=== PATIENT | male | born 1945 | race Caucasian/White ===

== ENCOUNTER 2017-06-28 19:14 | Emergency (ER) | payer MEDICARE, MEDICAID ==
[2017-06-28] MEDS ORDERED: Diphtheria,Pertussis(Acell),Tetanus Vaccine 0.5 ML SDV IM ONE (19:29)
[2017-06-28] MEDS ORDERED: Sodium Chloride 0.9% 10 ML Syringe FLUSH PRN (19:29)
[2017-06-28 20:03] VITALS: BP 134/91
--- NOTE | 2017-06-28 20:17 | EDM.PDOC ---
ED HPI GENERAL MEDICAL PROBLEM - General Chief Complaint: Head Injury Stated Complaint: HEAD INJURY Time Seen by Provider: 06/28/17 19:17 Source of Information: Reports: Patient, Skilled Nursing Records History Limitations: Reports: Altered Mental Status (dementia) - History of Present Illness INITIAL COMMENTS - FREE TEXT/NARRATIVE: 71 year old male presents from [facility] for evaluation and treatment of a laceration to the right lateral superior orbit. Patient is pleasantly demented and is unable to provide a reliable history. Per [facility] the patient was found in the bathroom after falling. No one witnessed the fall. Patient is on 81mg aspirin daily. Complaining of pain to the right side of his face and head. No chest pain, shortness of breath or abdominal pain. Unclear how he fell. Headache Pain Score (Numeric/FACES): 7 - Related Data Allergies Allergy/AdvReac Type Severity Reaction Status Date / Time No Known Allergies Allergy Verified 06/28/17 19:27 Home Meds: Home Meds Acetaminophen [Tylenol] 650 mg PO 0800,1700 06/28/17 [History] Aspirin 81 mg PO 0800 06/28/17 [History] B12/Levomefolate Calcium/B-6 [Foltx Tablet] 1 each PO 0800 06/28/17 [History] Bisacodyl [Laxative] 10 mg PO DAILY PRN 06/28/17 [History] Calcium Carbonate/Vitamin D3 [Calcium 500 + Vit D Caplet] 1 each PO 0800 [History] Cholecalciferol (Vitamin D3) [Vitamin D3] 4,000 unit PO 0800 06/28/17 [History] Divalproex Sodium 250 mg PO BID 06/28/17 [History] Docusate Sodium [Colace] 100 mg PO 0800,202906/28/17 [History] Fenofibrate 160 mg PO 0800 06/28/17 [History] Furosemide [Lasix] 40 mg PO 0800 06/28/17 [History] Isosorbide Mononitrate 15 mg PO 0800 06/28/17 [History] Lisinopril [Prinivil] 5 mg PO 0800 06/28/17 [History] Memantine [Namenda] 10 mg PO 0730,1730 06/28/17 [History] Metoprolol Succinate [Toprol XL] 50 mg PO 0800 06/28/17 [History] Multivitamin W/Iron, Minerals [George-Life] 1 each PO 0800 06/28/17 [History] PARoxetine [Paxil] 20 mg PO 0800 06/28/17 [History] Polyethylene Glycol 3350 [MiraLAX] 17 gm PO 0800,2030 06/28/17 [History] Potassium Chloride 20 meq PO 0800 06/28/17 [History] QUEtiapine Fumarate [Seroquel] 50 mg PO 1130,1930 06/28/17 [History] Rivastigmine Tartrate [Rivastigmine] 6 mg PO 0730,1730 06/28/17 [History] Tamsulosin [Flomax] 0.8 mg PO BEDTIME 06/28/17 [History] atorvaSTATin [Lipitor] 20 mg PO 0800 06/28/17 [History] levOCARNitine [l-Carnitine] 1,000 mg PO 0800,1200,1700 06/28/17 [History] metFORMIN HCl [Metformin HCl] 500 mg PO 0730,1730 06/28/17 [History] Past Medical History Cardiovascular History: Reports: High Cholesterol, Hypertension Respiratory History: Reports: Asthma, COPD Psychiatric History: Reports: Dementia, Psychosis Endocrine/Metabolic History: Reports: Diabetes, Type II Social & Family History - Tobacco Use Smoking Status *Q: Unknown Ever Smoked Years of Tobacco use: 45 Used Tobacco, but Quit: Yes Month Tobacco Last Used: 5 - Recreational Drug Use Recreational Drug Use: No ED ROS GENERAL - Review of Systems Review Of Systems: See Below Respiratory: Denies: Shortness of Breath Cardiovascular: Denies: Chest Pain GI/Abdominal: Denies: Abdominal Pain Skin: Reports: Wound (right lateral brow) ED EXAM, HEAD INJURY - Physical Exam Exam: See Below Exam Limited By: No Limitations General Appearance: Alert, WD/WN, No Apparent Distress Head: Normocephalic, Scalp Lacerations, Scalp Swelling, Scalp Abrasions, Scalp Ecchymosis, Scalp Hematoma, Scalp Tenderness, Facial Lacerations (right lateral brow 2.5cm irregular subcutaneous laceration) Nexus Criteria: No: Posterior, Midline Cervical Tenderness, Evidence of Intoxication, Altered Level of Consciousness, Focal Neurological Deficit, Painful Distraction Injuries Eyes: Bilateral Eye: Normal Inspection Ears: Normal External Exam Nose: Normal Inspection Throat/Mouth: Normal Inspection, Normal Lips, Normal Oropharynx, Normal Voice, No Airway Compromise Neck: Non-Tender, Full Range of Motion, Normal Alignment, Normal Inspection Respiratory: No Respiratory Distress, Lungs Clear, Normal Breath Sounds Cardiovascular: Normal Peripheral Pulses, Regular Rate, Rhythm, No Murmur GI/Abdominal Exam: Normal Bowel Sounds, Soft, Non-Tender Back Exam: No: Vertebral Tenderness Extremities: Normal Inspection, Normal Range of Motion Neurologic: Alert Skin: Normal Color, Warm/Dry, Other (2.5cm laceration to the right lateral brow) - [place] Coma Score Best Eye Response ([place]): (4) Open Spontaneously Best Verbal Response (Mark): (5) Oriented Best Motor Response ([place]): (6) Obeys Commands ED LACERATION/WOUND & ANAHY PROC - Laceration/Wound Repair Right Lac/wound length in cm: 2.5 Appearance: Subcutaneous, Irregular, Clean Distal NVT: Neuro & Vascular Intact, No Tendon Injury Anesthetic Type: Local Local Anesthesia - Lidocaine (Xylocaine): 1% Plain Local Anesthetic Volume: 2cc Skin Prep: Chlorhexidine (Hibiciens), Saline, Sterile Drape Exploration/Debridement/Repair: Wound Explored Suture Size: other (5-0) # of Sutures: 9 Suture Type: Nylon, Interrupted, Simple Suture Size: other (5-0) # of Sutures: 3 Repaired with: Vicryl Sterile Dressing Applied: Nurse Tetanus Status Addressed: Yes Complications: No EKG INTERPRETATION EKG Date: 06/28/17 Time: 19:40 Rhythm: A-Fib Rate (Beats/Min): 94 [place]: Normal P-Wave: Present QRS: RBBB ST-T: Normal QT: Normal EKG Interpretation Comments: a.fib with a rate of 84 to 140 bpm. RBBB pattern. LAD 1-23 degrees. Occassional PVC. T wave inversion VV1-V3. Near Q waves III and AVF - consider possible old inferior wall OK. Reviewed by muyself ad Dr. Kebede. Course - Vital Signs Last Recorded V/S: Last Vital Signs Temp 36.3 C 06/28/17 19:23 Pulse 79 06/28/17 20:03 Resp 18 06/28/17 20:03 BP 134/91 H 06/28/17 20:03 Pulse Ox 94 L 06/28/17 20:03 - Orders/Labs/Meds Orders: Active Orders 24 hr Category Date Time Status Cardiac Monitoring [RC] . DIRECTED Care 06/28/17 19:29 Active EKG Documentation Completion [RC] ASDIRECTED Care 06/28/17 19:29 Active Peripheral IV Care [RC] . DIRECTED Care 06/28/17 19:29 Active Vaccines to be Administered [RC] PER UNIT ROUTINE Care 06/28/17 19:29 Active Peripheral IV Insertion Adult [OM.PC] Routine Oth 06/28/17 19:28 Ordered EKG 12 Lead [EK] Stat Ther 06/28/17 19:29 Ordered Labs: Laboratory Tests 06/28/17 06/28/17 06/28/17 Range/Units 19:44 19:52 19:52 WBC 7.29 (4.23-9.07) K/mm3 RBC 4.63 (4.63-6.08) M/mm3 Hgb 13.3 L (13.7-17.5) gm/L Hct 42.4 (40.1-51.0) % MCV 91.6 (79.0-92.2) fl MCH 28.7 (25.7-32.2) pg MCHC 31.4 L (32.2-35.5) g/dl RDW Std Deviation 48.1 H (35.1-43.9) fL Plt Count 226 (163-337) K/mm3 MPV 9.4 (9.4-12.3) fl Neutrophils % (Manual) 70 H (40-60) % Band Neutrophils % 0 (0-10) % Lymphocytes % (Manual) 21 (20-40) % Atypical Lymphs % 0 % Monocytes % (Manual) 8 (2-10) % Eosinophils % (Manual) 1 (0.8-7.0) % Basophils % (Manual) 0 L (0.2-1.2) Platelet Estimate Adequate Plt Morphology Comment Normal RBC Morph Comment Normal Sodium 144 (136-145) mEq/L Potassium 4.1 (3.5-5.1) mEq/L Chloride 109 H (98-107) mEq/L Carbon Dioxide 31 (21-32) mEq/L Anion Gap 8.1 (5-15) BUN 23 H (7-18) mg/dL Creatinine 1.3 (0.7-1.3) mg/dL Est Cr Clr Drug Dosing 48.73 mL/min Estimated GFR (MDRD) 54 (>60) mL/min BUN/Creatinine Ratio 17.7 (14-18) Glucose 125 H (83-115) mg/dL Calcium 9.8 (8.5-10.1) mg/dL Magnesium 2.1 (1.8-2.4) mg/dl Total Bilirubin 0.2 (0.2-1.0) mg/dL AST 15 (15-37) U/L ALT 17 (16-63) U/L Alkaline Phosphatase 49 (46-116) U/L Troponin I < 0.017 (0.00-0.056) ng/mL Total Protein 6.8 (6.4-8.2) g/dl Albumin 3.4 (3.4-5.0) g/dl Globulin 3.4 gm/dL Albumin/Globulin Ratio 1.0 (1-2) Urine Color (Yellow) Urine Appearance (Clear) Urine pH (5.0-8.0) Ur Specific [place] (1.005-1.030) Urine Protein (Negative) Urine Glucose (UA) (Negative) Urine Ketones (Negative) Urine Occult Blood (Negative) Urine Nitrite (Negative) Urine Bilirubin (Negative) Urine Urobilinogen (0.2-1.0) Ur Leukocyte Esterase (Negative) Urine RBC (0-5) /hpf Urine WBC (0-5) /hpf Ur Epithelial Cells (0-5) /hpf Amorphous Sediment (NOT SEEN) /hpf Urine Bacteria (FEW) /hpf Urine Mucus (FEW) /hpf 06/28/17 Range/Units 22:50 WBC (4.23-9.07) K/mm3 RBC (4.63-6.08) M/mm3 Hgb (13.7-17.5) gm/L Hct (40.1-51.0) % MCV (79.0-92.2) fl MCH (25.7-32.2) pg MCHC (32.2-35.5) g/dl RDW Std Deviation (35.1-43.9) fL Plt Count (163-337) K/mm3 MPV (9.4-12.3) fl Neutrophils % (Manual) (40-60) % Band Neutrophils % (0-10) % Lymphocytes % (Manual) (20-40) % Atypical Lymphs % % Monocytes % (Manual) (2-10) % Eosinophils % (Manual) (0.8-7.0) % Basophils % (Manual) (0.2-1.2) Platelet Estimate Plt Morphology Comment RBC Morph Comment Sodium (136-145) mEq/L Potassium (3.5-5.1) mEq/L Chloride (98-107) mEq/L Carbon Dioxide (21-32) mEq/L Anion Gap (5-15) BUN (7-18) mg/dL Creatinine (0.7-1.3) mg/dL Est Cr Clr Drug Dosing mL/min Estimated GFR (MDRD) (>60) mL/min BUN/Creatinine Ratio (14-18) Glucose (83-115) mg/dL Calcium (8.5-10.1) mg/dL Magnesium (1.8-2.4) mg/dl Total Bilirubin (0.2-1.0) mg/dL AST (15-37) U/L ALT (16-63) U/L Alkaline Phosphatase (46-116) U/L Troponin I (0.00-0.056) ng/mL Total Protein (6.4-8.2) g/dl Albumin (3.4-5.0) g/dl Globulin gm/dL Albumin/Globulin Ratio (1-2) Urine Color Yellow (Yellow) Urine Appearance Clear (Clear) Urine pH 7.5 (5.0-8.0) Ur Specific [place] 1.015 (1.005-1.030) Urine Protein Negative (Negative) Urine Glucose (UA) Negative (Negative) Urine Ketones Negative (Negative) Urine Occult Blood Negative (Negative) Urine Nitrite Negative (Negative) Urine Bilirubin Negative (Negative) Urine Urobilinogen 0.2 (0.2-1.0) Ur Leukocyte Esterase Negative (Negative) Urine RBC 0-5 (0-5) /hpf Urine WBC 0-5 (0-5) /hpf Ur Epithelial Cells 0-5 (0-5) /hpf Amorphous Sediment Few H (NOT SEEN) /hpf Urine Bacteria Moderate H (FEW) /hpf Urine Mucus Few (FEW) /hpf Meds: Medications Discontinued Medications Generic Name Dose Route Start Last Admin Trade Name Freq PRN Reason Stop Dose Admin Diphtheria/Tetanus/Acell Pertussis 0.5 ml 06/28/17 19:29 06/28/17 19:57 Adacel IM 06/28/17 19:30 0.5 ml .ONCE ONE Administration Iopamidol 100 ml 06/28/17 20:44 06/28/17 21:30 Isovue-370 (76%) IVPUSH 06/28/17 20:45 100 ml ONETIME ONE Administration Iopamidol 25 ml 06/28/17 20:44 06/28/17 21:30 Isovue-370 (76%) IVPUSH 06/28/17 20:45 25 ml ONETIME ONE Administration Lidocaine HCl 50 ml 06/28/17 21:38 06/28/17 21:59 Xylocaine 1% INJECT 06/28/17 21:39 50 ml ONETIME ONE Administration Sodium Chloride 10 ml 06/28/17 19:29 06/28/17 19:57 Saline Flush FLUSH 10 ml ASDIRECTED PRN Administration Keep Vein Open - Radiology Interpretation Free Text/Narrative:: CT of the head without contrast impression per [facility]: Right periorbital hematoma and laceration. No evidence of any acute intracranial process. CT of the maxillofacial without contrast impression per [facility]: right periorbital hematoma and laceration CT of the cervical spine without contrast impression per [facility]: Degenerative changes. No evidence of acute fracture. CT of the chest, abdomen and pelvis impression per [facility]: No acute finding. CT Results Date: 06/28/17 - Re-Assessments/Exams Free Text/Narrative Re-Assessment/Exam: 06/28/17 23:00 Reviewed the labs and imaging with the patient. Laceration to the brow fixed. UA collected - will check tomorrow and call in an antibiotic if needed. Will not delay transfer to [facility] for results. Discharge instructions as documented. 06/29/17 12:17 UA reviewed - mod bacteria seen on microscopy. Negative nitrites and leuks. Urine sent for culture. Will notify if antibiotics are needed. Departure - Departure Time of Disposition: 23:00 Disposition: DC/Tfer to [facility] Condition: Fair Clinical Impression: Laceration, Hematoma - Discharge Information Instructions: Head Injury, Adult, Laceration Care, Adult, Hematoma, Easy-to- Read Referrals: Prashant Zendejas MD [Primary Care Provider] - Forms: ED Department Discharge Additional Instructions: Wash the wound with gentle soap and water twice a day. Antibacterial ointment such as Neosporin or bacitracin to the wound twice a day. Keep the wound covered. If the wound does start to bleed, apply pressure for 10-15 minutes. Have the sutures removed in 7-10 days. your primary care provider or the [facility] can do this for you. Monitor the wound for signs of infection such as increased swelling, redness or pus. Present to the clinic or the ER should these develop. [id number] Tylenol or Motrin as needed for pain relief. Please return to the ER if your Symptoms change or worsen. - My Orders Last 24 Hours: My Active Orders 06/28/17 19:28 Peripheral IV Insertion Adult [OM.PC] Routine 06/28/17 19:29 Cardiac Monitoring [RC] . DIRECTED EKG Documentation Completion [RC] ASDIRECTED Peripheral IV Care [RC] . DIRECTED Vaccines to be Administered [RC] PER UNIT ROUTINE EKG 12 Lead [EK] Stat - Assessment/Plan Last 24 Hours: My Active Orders 06/28/17 19:28 Peripheral IV Insertion Adult [OM.PC] Routine 06/28/17 19:29 Cardiac Monitoring [RC] . DIRECTED EKG Documentation Completion [RC] ASDIRECTED Peripheral IV Care [RC] . DIRECTED Vaccines to be Administered [RC] PER UNIT ROUTINE EKG 12 Lead [EK] Stat
[2017-06-28] MEDS ORDERED: Iopamidol 755 Mg/ML 100 ML Bottle IVPUSH ONE (20:44)
[2017-06-28] MEDS ORDERED: Iopamidol 755 MG/ML 50 ML Bottle IVPUSH ONE (20:44)
[2017-06-28] MEDS ORDERED: Lidocaine 1% 50 ML MDV INJECT ONE (21:38)
--- NOTE | 2017-06-29 07:46 | CT ---
Head CT Technique: Multiple axial sections through the brain were obtained. Intravenous contrast was not utilized. Comparison: No previous intracranial imaging. Findings: Ventricles along with basal cisterns and sulci over the convexities are moderately prominent. 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 Minimal diminished density is noted within the periventricular white matter compatible with small vessel ischemic demyelination change. No evidence of intracranial hemorrhage. No midline shift or mass effect is seen. Soft tissue swelling noted around the right periorbital region with soft tissue air compatible with soft tissue injury. No acute calvarial abnormality is identified. Impression: 1. Right periorbital hematoma with soft tissue air compatible with soft tissue injury. 2. Senescent change as described above. 3. No other acute abnormality is identified on noncontrast head CT exam. Diagnostic code #2 I agree with preliminary report issued by [facility] ([facility] report finalized on 06/28/17, 10:43 PM Central Time)
--- NOTE | 2017-06-29 07:46 | CT ---
CT facial bones Technique: Multiple axial sections through the facial bones were obtained. Reconstructed coronal and sagittal images were reviewed. Findings: Soft tissue swelling noted around the right periorbital region with soft tissue hematoma. Soft tissue air noted compatible with laceration. Right and left globes are symmetric. Paranasal sinuses are clear. No facial bone fracture is identified. Impression: 1. Soft tissue injury around the right periorbital region. 2. No acute fracture is seen within the facial bones. Diagnostic code #3 I agree with preliminary report issued by [facility] ([facility] report finalized on 06/28/17, 10:45 PM Central Time)
--- NOTE | 2017-06-29 07:46 | CT ---
CT cervical spine Technique: Multiple axial sections were obtained from above C1 inferiorly to the bottom of T3. Reconstructed sagittal and coronal images were reviewed. Comparison: No prior exam. Findings: Mild disc space narrowing noted at C3-C4 with posterior osteophytes and mild anterior osteophytes. Slight anterior osteophytes are noted at C2-C3. Severe disc space is narrowing noted at C4-C5 through T2-T3. Diffuse anterior osteophytes as well as posterior osteophytes are seen. Ligamentum nuchal calcification is seen off the spinous process of C7. Mild degenerative apophyseal change is seen throughout the cervical spine. Mastoid sinuses and middle ear cavities are seen appear clear. Posterior skull base is intact. No fracture is identified within the cervical spine. Multiple levels of neural foraminal stenosis are seen. Mild scoliosis is also noted. Impression: 1. Diffuse degenerative change. Mild scoliosis. 2. Nothing acute is appreciated on CT study of the cervical spine. Diagnostic code #2 I agree with preliminary report issued by [facility] ([facility] report finalized on 06/28/17, 10:44 PM Central Time)
--- NOTE | 2017-06-29 10:40 | CT ---
CT chest Technique: Multiple axial sections through the chest were obtained. Intravenous contrast was utilized. Findings: Heart shows coronary artery calcification. No pericardial thickening is seen. Atherosclerotic calcification noted within the thoracic aorta. Mediastinum and hilar regions show no adenopathy or mass. Lungs show scattered areas of pulmonary fibrosis and scarring. No acute pulmonary densities are appreciated. No pleural effusions or discrete pneumothorax is seen. Bone window settings show degenerative change within both shoulders, worse on the right side. Diffuse degenerative spurring noted within the spine. Kyphosis noted within the thoracic spine. Nothing acute is appreciated within the visualized osseous structures. Impression: 1. Incidental findings as noted above. Nothing acute is seen on CT study of the chest. Diagnostic code #2 I agree with preliminary report issued by [employer] ([facility] report finalized on 06/28/17, 10:42 PM Central Time) CT abdomen and pelvis Technique: Multiple axial sections were obtained from above the dome of the diaphragm inferiorly through the pubic symphysis. Intravenous contrast was utilized. No oral contrast has been given. Artifact noted over the upper abdomen from the patient's arms. Liver shows no focal abnormality. Low density lesions are seen within the spleen. Largest finding measures approximately 1.9 cm. Adrenal glands show no nodule. Gallbladder contains no calcified gallstones. Kidneys show symmetric contrast enhancement without hydronephrosis. Minimal cortical cyst noted within the left kidney. Pancreas is normal. Aorta shows atherosclerotic change which continues into the iliac vessels. Surgical clips seen within the right lower abdomen presumably from prior appendectomy. No pelvic mass or adenopathy is seen. Delayed images show contrast within the distal ureters and within the bladder. Bone window settings were reviewed showing degenerative change within both hips as well as within the spine. Mild endplate concavities seen of L1 which is most likely old. No acute bony abnormality is appreciated. Impression: 1. Incidental findings as noted above. 2. Several low density lesions within the spleen. These are felt to be pre-existing and most likely benign. 3. No acute abnormality is identified. Diagnostic code #3 I agree with preliminary report issued by [employer] ([facility] report finalized on 06/28/17, 10:42 PM Central Time)
== END 2017-06-28 23:26 ==
LOC: JD.ED 19:14
DX: S01.81XA Laceration without foreign body of other part of head, initial encounter (principal); S01.01XA Laceration without foreign body of scalp, initial encounter; S00.03XA Contusion of scalp, initial encounter; S00.01XA Abrasion of scalp, initial encounter; I10 Essential (primary) hypertension; E11.9 Type 2 diabetes mellitus without complications; E78.00 Pure hypercholesterolemia, unspecified; F03.90 Unspecified dementia, unspecified severity, without behavioral disturbance, psychotic disturbance, mood disturbance, and anxiety; J44.9 Chronic obstructive pulmonary disease, unspecified; Z79.82 Long term (current) use of aspirin; Z87.891 Personal history of nicotine dependence; Z79.84 Long term (current) use of oral hypoglycemic drugs; Z79.899 Other long term (current) drug therapy; W19.XXXA Unspecified fall, initial encounter; Y92.121 Bathroom in nursing home as the place of occurrence of the external cause
CPT/HCPCS: 12011; 36415; 70450; 70486; 71260; 72125; 74177; 80053; 81001; 83735; 84484; 85025; 87086; 90471; 90715; 93005; 99285; J7050; Q9967

== ENCOUNTER 2018-07-20 23:12 | Emergency (ER) | payer MEDICARE, MEDICAID ==
--- NOTE | 2018-07-20 23:53 | EDM.PDOC ---
ED HPI GENERAL MEDICAL PROBLEM - General Chief Complaint: Chest Pain Stated Complaint: [facility] Time Seen by Provider: 07/20/18 23:22 Source of Information: Reports: Patient, EMS, [facility] Records, Old Records History Limitations: Reports: Other (History of schizophrenia) - History of Present Illness INITIAL COMMENTS - FREE TEXT/NARRATIVE: This is a 72-year-old male. He lives at the [facility] in [place]. Apparently this evening the nurse responded to a call to his room where he was complaining of chest pain and abdominal pain. The patient is a DNR. Apparently he was coughing up some phlegm and they were concerned since he has a history of congestive heart failure and they called the ambulance and brought him to the ER. By the time he got to the ER he denies any chest pain and denies any abdominal pain. His EKG initially showed atrial fibrillation with the same changes that were seen back in June 2017. The patient states he is hungry and he wants a turkey sandwich. We will check the patient over with labs and make certain the patient is doing okay. He does not appear to be in acute distress at this time. - Related Data Allergies Allergy/AdvReac Type Severity Reaction Status Date / Time No Known Allergies Allergy Verified 07/20/18 23:47 Home Meds: Home Meds Acetaminophen [Tylenol] 650 mg PO 0800,1700 06/28/17 [History] Bisacodyl [Laxative] 10 mg PO ASDIRECTED PRN 06/28/17 [History] Calcium Carbonate/Vitamin D3 [Calcium 500 + Vit D Caplet] 1 each PO 1730 [History] Cholecalciferol (Vitamin D3) [Vitamin D3] 4,000 unit PO 1730 06/28/17 [History] Divalproex Sodium 250 mg PO BID 06/28/17 [History] Docusate Sodium [Colace] 100 mg PO 0800,2030 06/28/17 [History] Fenofibrate 160 mg PO 0800 06/28/17 [History] Furosemide [Lasix] 40 mg PO 0800 06/28/17 [History] Isosorbide Mononitrate 15 mg PO 0800 06/28/17 [History] Lisinopril [Prinivil] 5 mg PO 0800 06/28/17 [History] Memantine [Namenda] 10 mg PO 0730,1730 06/28/17 [History] Metoprolol Succinate [Toprol XL] 75 mg PO 0800 06/28/17 [History] PARoxetine [Paxil] 20 mg PO 0800 06/28/17 [History] Polyethylene Glycol 3350 [MiraLAX] 17 gm PO ASDIRECTED PRN 06/28/17 [History] Potassium Chloride 20 meq PO 0800 06/28/17 [History] QUEtiapine Fumarate [Seroquel] 50 mg PO 1130,1930 06/28/17 [History] Rivastigmine Tartrate [Rivastigmine] 6 mg PO 0730,1730 06/28/17 [History] Tamsulosin [Flomax] 0.8 mg PO BEDTIME 06/28/17 [History] atorvaSTATin [Lipitor] 20 mg PO 0800 06/28/17 [History] levOCARNitine [l-Carnitine] 1,000 mg PO 0800,1200,1700 06/28/17 [History] metFORMIN HCl [Metformin HCl] 500 mg PO 0730,1730 06/28/17 [History] Aspirin [Low Dose Aspirin EC] 81 mg PO DAILY 07/20/18 [History] Acetaminophen [Tylenol] 650 mg PO 0800,1700 MDD 4 gm 07/21/18 [History] Bisacodyl 10 mg RC ASDIRECTED PRN 07/21/18 [History] Folic Acid 1 mg PO DAILY 07/21/18 [History] Nystatin 100,000 unit PO ASDIRECTED PRN 07/21/18 [History] Rivaroxaban [Xarelto] 20 mg PO 0800 07/21/18 [History] Past Medical History Cardiovascular History: Reports: High Cholesterol, Hypertension Respiratory History: Reports: Asthma, COPD Psychiatric History: Reports: Dementia, Psychosis Endocrine/Metabolic History: Reports: Diabetes, Type II ED ROS GENERAL - Review of Systems Review Of Systems: Unable To Obtain (The patient apparently says no to everything that he is feeling fine by do not Nestl trust this due to his mental status of slowness and history of schizophrenia) Respiratory: Reports: Cough, Sputum Cardiovascular: Reports: Chest Pain GI/Abdominal: Reports: Abdominal Pain ED EXAM, GENERAL - Physical Exam Exam: See Below Exam Limited By: Other (Patient is cooperative but he has slow mentation) General Appearance: Alert, WD/WN, No Apparent Distress Eye Exam: Bilateral Eye: Normal Inspection Ears: Normal External Exam, Normal Canal, Normal TMs Nose: Normal Inspection Throat/Mouth: Normal Inspection, Normal Lips, Normal Voice, No Airway Compromise Head: Normocephalic Neck: Supple, Other (No JVD is noted sitting up at 45 in the bed) Respiratory/Chest: Normal Breath Sounds, Other (He does have some decreased breath sounds in the bases but I do not hear any significant rales or rhonchi at this time) Cardiovascular: Irregularly Irregular, Other (He has a normal rate is well controlled) GI/Abdominal: Soft, Non-Tender, Other (Palpation all over his abdomen is nontender and he does have bowel sounds) Back Exam: Decreased Range of Motion Extremities: Other (He does have peripheral edema noted in the lower extremities about 1+ long-term up lower legs ) Neurological: Alert, Other (Patient tells me he is from [employer], he believes he is in the hospital but he can't tell me much more) Psychiatric: Flat Affect Skin Exam: Warm, Dry EKG INTERPRETATION EKG Date: 07/20/18 Time: 23:31 EKG Interpretation Comments: Atrial fibrillation with some premature ventricular complexes and a right bundle branch block. This is exactly the same reading that was gotten on 2016 and there is no significant changes in morphology. Course - Vital Signs Last Recorded V/S: Last Vital Signs Temp 98.5 F 07/20/18 23:42 Pulse 77 07/21/18 06:28 Resp 18 07/21/18 06:28 BP 142/78 H 07/21/18 00:33 Pulse Ox 97 07/21/18 06:28 - Orders/Labs/Meds Labs: Laboratory Tests 07/20/18 07/20/18 07/20/18 Range/Units 23:25 23:25 23:25 WBC 4.36 (4.23-9.07) K/mm3 RBC 4.58 L (4.63-6.08) M/mm3 Hgb 13.2 L (13.7-17.5) gm/L Hct 42.3 (40.1-51.0) % MCV 92.4 H (79.0-92.2) fl MCH 28.8 (25.7-32.2) pg MCHC 31.2 L (32.2-35.5) g/dl RDW Std Deviation 48.3 H (35.1-43.9) fL Plt Count 261 (163-337) K/mm3 MPV 10.1 (9.4-12.3) fl Neut % (Auto) 54.8 (34.0-67.9) % Lymph % (Auto) 25.2 (21.8-53.1) % [place] % (Auto) 13.8 H (5.3-12.2) % Eos % (Auto) 5.0 (0.8-7.0) Baso % (Auto) 0.7 (0.1-1.2) % Neut # (Auto) 2.39 (1.78-5.38) K/mm3 Lymph # (Auto) 1.10 L (1.32-3.57) K/mm3 [place] # (Auto) 0.60 (0.30-0.82) K/mm3 Eos # (Auto) 0.22 (0.04-0.54) K/mm3 Baso # (Auto) 0.03 (0.01-0.08) K/mm3 Sodium 144 (136-145) mEq/L Potassium 4.1 (3.5-5.1) mEq/L Chloride 107 (98-107) mEq/L Carbon Dioxide 32 (21-32) mEq/L Anion Gap 9.1 (5-15) BUN 25 H (7-18) mg/dL Creatinine 1.3 (0.7-1.3) mg/dL Est Cr Clr Drug Dosing TNP Estimated GFR (MDRD) 54 (>60) mL/min BUN/Creatinine Ratio 19.2 H (14-18) Glucose 114 (83-115) mg/dL Calcium 9.6 (8.5-10.1) mg/dL Total Bilirubin 0.2 (0.2-1.0) mg/dL AST 15 (15-37) U/L ALT 18 (16-63) U/L Alkaline Phosphatase 55 (46-116) U/L Troponin I < 0.017 (0.00-0.056) ng/mL NT-Pro-B Natriuret Pep 1599 H (0-125) pg/mL Total Protein 6.6 (6.4-8.2) g/dl Albumin 3.1 L (3.4-5.0) g/dl Globulin 3.5 gm/dL Albumin/Globulin Ratio 0.9 L (1-2) - Re-Assessments/Exams Free Text/Narrative Re-Assessment/Exam: 07/21/18 00:44 Patient has been doing fine in the ER and ate a turkey sandwich. He is sleeping peacefully now. His BNP was 1500 however his pulse ox on room air is 95% and he is in no distress or shortness of breath. The patient states he feels fine and he was to go back home. His workup did not show any acute values other than the BNP. His troponin was normal. 07/21/18 05:05 Patient has remained stable sleeping with no difficulty in breathing and he has been peaceful. We're waiting for the transport, and picked him up at 6 AM. Departure - Departure Time of Disposition: 06:30 Disposition: Home, Self-Care 01 Condition: Fair Clinical Impression: Mild congestive heart failure Chest pain Qualifiers: Chest pain type: unspecified Qualified Code(s): R07.9 - Chest pain, unspecified Instructions: Heart Failure, [id number] Referrals: Prashant Zendejas MD [Primary Care Provider] - Forms: ED Department Discharge Additional Instructions: Increase the Lasix to 40 mg at 8 AM and 2 PM for the next 3 days and then resume Lasix at 40 mg at 8 AM each day thereafter, follow-up with his family doctor as desired, return to the ER if needed Even though he has very mild congestive failure his pulse ox on room air is 95% when sleeping in the ER
[2018-07-21 00:34] VITALS: BP 142/78
== END 2018-07-21 06:53 | disposition home or self-care (01) ==
LOC: JD.ED 23:12
DX: I11.0 Hypertensive heart disease with heart failure (principal); I50.9 Heart failure, unspecified; E11.9 Type 2 diabetes mellitus without complications; J44.9 Chronic obstructive pulmonary disease, unspecified; I48.91 Unspecified atrial fibrillation; I45.10 Unspecified right bundle-branch block; Z79.899 Other long term (current) drug therapy
CPT/HCPCS: 36415; 80053; 83880; 84484; 85025; 93005; 99285-25

== ENCOUNTER 2018-09-24 09:10 | Emergency (ER) | payer MEDICARE, MEDICAID ==
[2018-09-24 09:21] VITALS: BP 111/75
[2018-09-24] MEDS ORDERED: Sodium Chloride 0.9% 1,000 ML IV SCH (09:30)
[2018-09-24] MEDS ORDERED: Diltiazem 50 MG/10 ML SDV IVPUSH STA (09:56)
--- NOTE | 2018-09-24 09:58 | EDM.PDOC ---
ED HPI GENERAL MEDICAL PROBLEM - General Chief Complaint: General Stated Complaint: [facility] Time Seen by Provider: 09/24/18 09:23 Source of Information: Reports: Retirement Records, RN, RN Notes Reviewed History Limitations: Reports: Altered Mental Status - History of Present Illness INITIAL COMMENTS - FREE TEXT/NARRATIVE: The patient is brought from the [facility] by EMS with a report of increased lethargy. The patient has a history of Alzheimer-type dementia, and is unable to contribute to his own history. Paperwork from the [facility] indicates increased lethargy, increased combativeness, increased confusion, and irregular heart rate, but does not indicate the duration. According to our nurses, EMS told them that the [facility] nurses indicated that his symptoms have progressively been getting worse over the past week. The patient's PCP is Dr. Zendejas. - Related Data Allergies Allergy/AdvReac Type Severity Reaction Status Date / Time No Known Allergies Allergy Verified 09/24/18 09:23 Home Meds: Home Meds Tamsulosin [Flomax] 0.8 mg PO BEDTIME 06/28/17 [History] atorvaSTATin [Lipitor] 20 mg PO BEDTIME 06/28/17 [History] levOCARNitine [l-Carnitine] 1,000 mg PO 0800,1200,1700 06/28/17 [History] metFORMIN HCl [Metformin HCl] 500 mg PO 0800,1200,1700 06/28/17 [History] Acetaminophen [Tylenol] 650 mg PO BID 09/24/18 [History] Aspirin 81 mg PO DAILY 09/24/18 [History] Benzocaine/Menthol [Dermoplast Pain Relief [place]] 1 spray TOP TID PRN 09/24/18 [ History] Bisacodyl 15 mg PO DAILY PRN 09/24/18 [History] Bisacodyl [Dulcolax] 10 mg RECTAL TID 09/24/18 [History] Calcium Carbonate/Vitamin D3 [Calcium 600 + Vit D Tablet] 500 mg PO DAILY [History] Cholecalciferol (Vitamin D3) [Vitamin D3] 1,000 units PO DAILY 09/24/18 [History ] Docusate Sodium [Colace] 100 mg PO BID 09/24/18 [History] Fenofibrate 160 mg PO DAILY 09/24/18 [History] Folic Acid 1 mg PO DAILY 09/24/18 [History] Furosemide [Lasix] 40 mg PO DAILY 09/24/18 [History] Isosorbide Mononitrate 15 mg PO DAILY 09/24/18 [History] Lisinopril 5 mg PO DAILY 09/24/18 [History] Memantine [Namenda] 10 mg PO BID 09/24/18 [History] Metoprolol Succinate [Toprol XL 50mg] 75 mg PO DAILY 09/24/18 [History] Multivit with Iron,Minerals [Spectravite Senior] 18 - 400 mg PO DAILY 09/24/18 [ History] Nystatin 17 g TOP BID PRN 09/24/18 [History] PARoxetine HCl [Paxil] 20 mg PO DAILY 09/24/18 [History] Polyethylene Glycol 3350 17 g PO BID PRN 09/24/18 [History] Potassium Chloride 20 meq PO DAILY 09/24/18 [History] QUEtiapine [SEROquel] 50 mg PO BID 09/24/18 [History] Rivastigmine Tartrate [Rivastigmine] 6 mg PO BID 09/24/18 [History] Past Medical History HEENT History: Reports: Hard of Hearing, Impaired Vision Cardiovascular History: Reports: Afib, Blood Clots/VTE/DVT (LLE DVT), CAD, Heart Failure, High Cholesterol, Hypertension, 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 Narcissistic personality disorder.) Endocrine/Metabolic History: Reports: Diabetes, Type II, Obesity/BMI 30+, Vitamin D Deficiency Hematologic History: Reports: Anticoagulation Therapy (Xarelto) Social & Family History - Family History Family Medical History: Noncontributory - Tobacco Use Smoking Status *Q: Never Smoker Second Hand Smoke Exposure: No - Caffeine Use Caffeine Use: Reports: Soda - Recreational Drug Use Recreational Drug Use: No - Living Situation & Occupation Living situation: Reports: Extended Care Facility ([facility]) Occupation: Retired ED ROS GENERAL - Review of Systems Review Of Systems: ROS reveals no pertinent complaints other than HPI. - Physical Exam Exam: See Below Exam Limited By: Altered Mental Status General Appearance: WD/WN, No Apparent Distress Eye Exam: Bilateral Eye: EOMI, Normal Inspection Ears: Normal External Exam Nose: Normal Inspection Throat/Mouth: Normal Inspection, Normal Lips, No Airway Compromise Head Exam: Atraumatic, Normocephalic Neck: Normal Inspection Respiratory/Chest: No Respiratory Distress, No Accessory Muscle Use, Rhonchi. No: Decreased Breath Sounds, Crackles, Wheezing, Stridor, Prolonged Expiration Cardiovascular: Normal Peripheral Pulses, No Gallop, No JVD, No Murmur, No Rub, Tachycardia (irregularly irregular) GI/Abdominal: Normal Bowel Sounds, Soft, Non-Tender, No Organomegaly, No Distention, No Abnormal Bruit, No Mass, Other (Obese) (Male) Exam: Deferred Rectal (Males) Exam: Deferred Neuro Exam (Abbreviated): Other (Awake, but does not follow commands) Extremities: Other (Bilateral knee-high TEDS hose on) Psychiatric: Other (Unable to assess) Skin Exam: Warm, Dry, Intact, Normal Color, No Rash EKG INTERPRETATION EKG Date: 09/24/18 Time: : Rhythm: A-Fib Rate (Beats/Min): 146 [place]: Normal P-Wave: Absent QRS: RBBB (with LVH) ST-T: Depressed (1 mm, V2 only) QT: Prolonged (QTc 502 ms) Comparison: No Change (07/30/2018) Course - Vital Signs Last Recorded V/S: Last Vital Signs Temp 36.2 C 09/24/18 09:15 Pulse 141 H 09/24/18 09:15 Resp 25 H 09/24/18 09:15 BP 111/75 09/24/18 09:15 Pulse Ox 90 L 09/24/18 09:15 - Orders/Labs/Meds Orders: Active Orders 24 hr Category Date Time Status EKG Documentation Completion [RC] STAT Care 09/24/18 09:24 Active EKG Documentation Completion [RC] STAT Care 09/24/18 09:43 Active CULTURE BLOOD [BC] Stat Lab 09/24/18 09:46 Received CULTURE BLOOD [BC] Stat Lab 09/24/18 09:55 Received Diltiazem 125 mg Med 09/24/18 10:00 Active Sodium Chloride 0.9% [Normal Saline] 100 ml IV TITRATE Sodium Chloride 0.9% [Normal Saline] 1,000 ml Med 09/24/18 09:30 Active IV ASDIRECTED Blood Culture x2 Reflex Set [OM.PC] Stat Oth 09/24/18 09:24 Ordered Medication Orders Sodium Chloride (Normal Saline) 1,000 mls @ 150 mls/hr IV ASDIRECTED GRAEME Last Admin: 09/24/18 10:19 Dose: 150 mls/hr Diltiazem HCl 125 mg/ Sodium (Chloride) 125 mls @ 10 mls/hr IV TITRATE GRAEME; Protocol Last Admin: 09/24/18 10:42 Dose: 10 mg/hr, 10 mls/hr Labs: Laboratory Tests 09/24/18 09/24/18 09/24/18 Range/Units 09:46 09:46 09:46 WBC 8.52 (4.23-9.07) K/mm3 RBC 5.06 (4.63-6.08) M/mm3 Hgb 14.5 (13.7-17.5) gm/L Hct 47.1 (40.1-51.0) % MCV 93.1 H (79.0-92.2) fl MCH 28.7 (25.7-32.2) pg MCHC 30.8 L (32.2-35.5) g/dl RDW Std Deviation 53.5 H (35.1-43.9) fL Plt Count 184 (163-337) K/mm3 MPV 10.9 (9.4-12.3) fl Neutrophils % (Manual) 70 H (40-60) % Band Neutrophils % 1 (0-10) % Lymphocytes % (Manual) 18 L (20-40) % Atypical Lymphs % 0 % Monocytes % (Manual) 8 (2-10) % Eosinophils % (Manual) 3 (0.8-7.0) % Basophils % (Manual) 0 L (0.2-1.2) Platelet Estimate Adequate RBC Morph Comment Normal Sodium 156 H (136-145) mEq/L Potassium 4.0 (3.5-5.1) mEq/L Chloride 117 H (98-107) mEq/L Carbon Dioxide 25 (21-32) mEq/L Anion Gap 18.0 H (5-15) BUN 46 H (7-18) mg/dL Creatinine 1.8 H (0.7-1.3) mg/dL Est Cr Clr Drug Dosing 38.30 mL/min Estimated GFR (MDRD) 37 (>60) mL/min BUN/Creatinine Ratio 25.6 H (14-18) Glucose 118 H (83-115) mg/dL Lactic Acid 0.9 (0.4-2.0) mmol/L Calcium 10.1 (8.5-10.1) mg/dL Magnesium 2.2 (1.8-2.4) mg/dl Total Bilirubin 0.6 (0.2-1.0) mg/dL AST 12 L (15-37) U/L ALT 17 (16-63) U/L Alkaline Phosphatase 34 L (46-116) U/L Troponin I < 0.017 (0.00-0.056) ng/mL Total Protein 7.4 (6.4-8.2) g/dl Albumin 3.1 L (3.4-5.0) g/dl Globulin 4.3 gm/dL Albumin/Globulin Ratio 0.7 L (1-2) Urine Color (Yellow) Urine Appearance (Clear) Urine pH (5.0-8.0) Ur Specific [place] (1.005-1.030) Urine Protein (Negative) Urine Glucose (UA) (Negative) Urine Ketones (Negative) Urine Occult Blood (Negative) Urine Nitrite (Negative) Urine Bilirubin (Negative) Urine Urobilinogen (0.2-1.0) Ur Leukocyte Esterase (Negative) Urine RBC (0-5) /hpf Urine WBC (0-5) /hpf Ur Epithelial Cells (0-5) /hpf Urine Bacteria (FEW) /hpf Hyaline Casts (0-5) /lpf Urine Mucus (FEW) /hpf 09/24/18 Range/Units 10:10 WBC (4.23-9.07) K/mm3 RBC (4.63-6.08) M/mm3 Hgb (13.7-17.5) gm/L Hct (40.1-51.0) % MCV (79.0-92.2) fl MCH (25.7-32.2) pg MCHC (32.2-35.5) g/dl RDW Std Deviation (35.1-43.9) fL Plt Count (163-337) K/mm3 MPV (9.4-12.3) fl Neutrophils % (Manual) (40-60) % Band Neutrophils % (0-10) % Lymphocytes % (Manual) (20-40) % Atypical Lymphs % % Monocytes % (Manual) (2-10) % Eosinophils % (Manual) (0.8-7.0) % Basophils % (Manual) (0.2-1.2) Platelet Estimate RBC Morph Comment Sodium (136-145) mEq/L Potassium (3.5-5.1) mEq/L Chloride (98-107) mEq/L Carbon Dioxide (21-32) mEq/L Anion Gap (5-15) BUN (7-18) mg/dL Creatinine (0.7-1.3) mg/dL Est Cr Clr Drug Dosing mL/min Estimated GFR (MDRD) (>60) mL/min BUN/Creatinine Ratio (14-18) Glucose (83-115) mg/dL Lactic Acid (0.4-2.0) mmol/L Calcium (8.5-10.1) mg/dL Magnesium (1.8-2.4) mg/dl Total Bilirubin (0.2-1.0) mg/dL AST (15-37) U/L ALT (16-63) U/L Alkaline Phosphatase (46-116) U/L Troponin I (0.00-0.056) ng/mL Total Protein (6.4-8.2) g/dl Albumin (3.4-5.0) g/dl Globulin gm/dL Albumin/Globulin Ratio (1-2) Urine Color Yellow (Yellow) Urine Appearance Clear (Clear) Urine pH 6.0 (5.0-8.0) Ur Specific [place] 1.020 (1.005-1.030) Urine Protein Negative (Negative) Urine Glucose (UA) Negative (Negative) Urine Ketones Negative (Negative) Urine Occult Blood Negative (Negative) Urine Nitrite Negative (Negative) Urine Bilirubin Negative (Negative) Urine Urobilinogen 0.2 (0.2-1.0) Ur Leukocyte Esterase Negative (Negative) Urine RBC Not seen (0-5) /hpf Urine WBC Not seen (0-5) /hpf Ur Epithelial Cells 0-5 (0-5) /hpf Urine Bacteria Rare (FEW) /hpf Hyaline Casts 0-5 (0-5) /lpf Urine Mucus Rare H (FEW) /hpf Meds: Medications Generic Name Dose Route Start Last Admin Trade Name Freq PRN Reason Stop Dose Admin Sodium Chloride 1,000 mls @ 150 mls/hr 09/24/18 09:30 09/24/18 10:19 Normal Saline IV 150 mls/hr ASDIRECTED GRAEME Administration Diltiazem HCl 125 mg/ Sodium 125 mls @ 10 mls/hr 09/24/18 10:00 09/24/18 10: 42 Chloride IV 10 mg/hr TITRATE GRAEME 10 mls/hr Administration Protocol 10 MG/HR Discontinued Medications Generic Name Dose Route Start Last Admin Trade Name Freq PRN Reason Stop Dose Admin Diltiazem HCl 5 mg 09/24/18 09:56 09/24/18 10:19 Cardizem IVPUSH 09/24/18 09:57 5 mg ONETIME STA Administration - Re-Assessments/Exams Free Text/Narrative Re-Assessment/Exam: 09/24/18 09:53 The computer is reading the patient's ECG as an acute posterior wall NV, however , I am not sure that I agree with it. The patient has about [address] depression in V2 only, which may be related to rate. The patient is in atrial fibrillation with RVR at 146 bpm. He has a RBBB. His QTc is prolonged at 502 ms. No significant change from prior ECG dated 07/30/2018, however, I have ordered a posterior lead ECG to further evaluate. In the meantime, the patient will be started on IV Cardizem. Medical records from the [facility] indicate that the patient is already on Xarelto. 09/24/18 10:02 The posterior-lead ECG, obtained at 09:56, does not show any ischemic changes. 09/24/18 10:22 Portable chest radiograph reviewed. The cardiac silhouette is at the upper limits of normal. No pulmonary vascular congestion. No pleural effusions seen on this AP view. No focal infiltrate. No pneumothorax. Aortosclerosis incidentally noted. Healed left clavicle fracture incidentally noted. Formal read per the Radiologist pending. 09/24/18 10:55 The patient's CBC is unremarkable. No elevated WBC count or anemia. The patient's CMP is remarkable for a sodium of 156. It was 148 on 08/03/2018. His BUN/Cr are elevated at 46/1.8. They were 23/1.2 on 08/03/2018. The remainder of his CMP is unremarkable. His magnesium is within normal limits. The patient's troponin is undetectable. The patient's lactic acid level is normal at 0.9. The patient's urinalysis is normal. The patient's influenza swab returned negative. I'm going to recommend admission to the hospital for A-fib rate control and IV fluid to correct the patient's hypernatremia and acute renal insufficiency. 09/24/18 11:[address] Correa is rounding. She will call me back once she is available. 09/24/18 12:[address] Correa. Unfortunately, we do not have any ICU beds available. The patient will need to be transferred to Left Hand. 09/24/18 12:46 Case discussed with Lin at [facility] at 12:36. Unfortunately, [facility] is currently on diversion. Case then discussed with Lin at [facility] at 12:38. The portable chest x-ray image was pushed to [facility] at 12:42. Case then discussed with Dr. Maldonado, Hospitalist at [facility], at 12:44. He accepted the patient for direct admission to their facility. The patient will be transported by ground ambulance. Departure - Departure Time of Disposition: 12:49 Disposition: DC/Tfer to [facility] 02 Condition: Fair Clinical Impression: Hypernatremia, Acute renal insufficiency, Atrial fibrillation with rapid ventricular response - Discharge Information *PRESCRIPTION DRUG MONITORING PROGRAM REVIEWED*: Not Applicable *COPY OF PRESCRIPTION DRUG MONITORING REPORT IN PATIENT RACHEL: Not Applicable Referrals: Prashant Zendejas MD [Primary Care Provider] - - My Orders Last 24 Hours: My Active Orders 09/24/18 09:24 EKG Documentation Completion [RC] STAT Blood Culture x2 Reflex Set [OM.PC] Stat 09/24/18 09:30 Sodium Chloride 0.9% [Normal Saline] 1,000 ml IV ASDIRECTED 09/24/18 09:43 EKG Documentation Completion [RC] STAT 09/24/18 09:46 CULTURE BLOOD [BC] Stat 09/24/18 09:55 CULTURE BLOOD [BC] Stat 09/24/18 10:00 Diltiazem 125 mg Sodium Chloride 0.9% [Normal Saline] 100 ml IV TITRATE - Assessment/Plan Last 24 Hours: My Active Orders 09/24/18 09:24 EKG Documentation Completion [RC] STAT Blood Culture x2 Reflex Set [OM.PC] Stat 09/24/18 09:30 Sodium Chloride 0.9% [Normal Saline] 1,000 ml IV ASDIRECTED 09/24/18 09:43 EKG Documentation Completion [RC] STAT 09/24/18 09:46 CULTURE BLOOD [BC] Stat 09/24/18 09:55 CULTURE BLOOD [BC] Stat 09/24/18 10:00 Diltiazem 125 mg Sodium Chloride 0.9% [Normal Saline] 100 ml IV TITRATE
[2018-09-24] MEDS ORDERED: Diltiazem 125 MG in Sodium Chloride 0.9% 100 ML IV SCH (10:00)
--- NOTE | 2018-09-24 10:59 | CR ---
Chest: Frontal view of the chest was obtained. Comparison: Prior chest x-ray of 07/30/18. Heart size is slightly enlarged. Tortuous thoracic aorta is seen. Lungs are clear with no acute parenchymal change. Bony structures are grossly intact. Impression: 1. Nothing acute is appreciated on frontal chest x-ray. Diagnostic code #2
== END 2018-09-24 13:48 ==
LOC: JD.ED 09:10
DX: N17.9 Acute kidney failure, unspecified (principal); I48.91 Unspecified atrial fibrillation; E87.0 Hyperosmolality and hypernatremia; I13.0 Hypertensive heart and chronic kidney disease with heart failure and stage 1 through stage 4 chronic kidney disease, or unspecified chronic kidney disease; E11.22 Type 2 diabetes mellitus with diabetic chronic kidney disease; N18.9 Chronic kidney disease, unspecified; I50.9 Heart failure, unspecified; J44.9 Chronic obstructive pulmonary disease, unspecified; E78.00 Pure hypercholesterolemia, unspecified; Z79.01 Long term (current) use of anticoagulants; Z79.82 Long term (current) use of aspirin; Z79.84 Long term (current) use of oral hypoglycemic drugs
CPT/HCPCS: 36415; 71045; 80053; 81001; 83605; 83735; 84484; 85007; 85027; 87040; 87804; 93005; 96365; 96366; 96376; 99285; J3490; J7030; J7040; 93010; 99283